=== PATIENT | female | born 1960 | race Caucasian/White ===

== ENCOUNTER → 2022-01-01 | Outpatient (CLI) | payer MEDICARE, MEDICAID ==
--- NOTE | 2022-01-01 18:12 | Diagnostic Imaging Report ---
INDICATION: Fall. Pain to left hand. COMPARISON: Comparison with 12/29/2019 exam. FINDINGS: There is a slightly comminuted and impacted fracture of the distal second metacarpal. This does involve a portion of the articulating surface on the thenar side. The MP joint remains intact. There is moderate arthritic change noted throughout the hand. There is an old healed deformity of the third proximal phalanx. IMPRESSION: 1. Acute comminuted mildly impacted fracture of the second distal metacarpal without dislocation of the MP joint. Dictated by: Dictated on workstation # [id number]
== END ==
LOC: EDBD 15:36 → RAD 15:36
PROVIDERS: ATTEND Family Medicine
DX: S62.301A Unspecified fracture of second metacarpal bone, left hand, initial encounter for closed fracture (principal); K21.9 Gastro-esophageal reflux disease without esophagitis; G47.00 Insomnia, unspecified; W18.39XA Other fall on same level, initial encounter; Y92.000 Kitchen of unspecified non-institutional (private) residence as the place of occurrence of the external cause
CPT/HCPCS: 73130